=== PATIENT | male | born 1995 | race African-American/Black ===

== ENCOUNTER 2022-07-24 03:11 | Emergency (ER) | payer OTHER ==
[~2022-07-24] VITALS: Ht 182.9 cm; Wt 86.4 kg
[2022-07-24 03:12] VITALS: TEMP 98.4
[2022-07-24] MEDS ORDERED: ALBUTEROL SULFATE 2.5 MG/0.5 ML NEB SOLUTION NEB ONE (03:15)
[2022-07-24] MEDS ORDERED: PredniSONE 20 MG TABLET PO ONE (03:15)
[2022-07-24] MEDS ORDERED: GuaiFENesin/D-METHORPHAN [SUGAR-FREE] 200-20MG/10 ML SYRUP UDCUP PO ONE (03:15)
[2022-07-24] MEDS ORDERED: IPRATROPIUM BROMIDE 0.5 MG/2.5 ML NEB SOLUTION NEB ONE (03:15)
[2022-07-24 03:45] VITALS: PULSE 90; RESP 17; O2SAT 94
[2022-07-24] MEDS ORDERED: ALBUTEROL SULFATE HFA 90 MCG/PUFF 8 GM INHALER IH ONE (04:00)
[2022-07-24 04:05] VITALS: PULSE 90; RESP 17; O2SAT 94
[2022-07-24] MEDS ORDERED: GUAIFDM PO (04:15)
[2022-07-24] MEDS ORDERED: ALBU18HF12 IH (04:15)
[2022-07-24] MEDS ORDERED: PRED-554 PO (04:15)
[2022-07-24 04:18] VITALS: BP 115/76
[2022-07-24 04:20] VITALS: PULSE 89; RESP 16; O2SAT 96
[2022-07-24 04:22] VITALS: PULSE 88; RESP 17; O2SAT 98
== END 2022-07-24 04:55 | disposition home or self-care (01) ==
LOC: EMS 03:11
DX: J45.901 Unspecified asthma with (acute) exacerbation (principal); F12.90 Cannabis use, unspecified, uncomplicated
CPT/HCPCS: 99283; 71045; 94640; J7512; J3535; J7613